=== PATIENT | female | born 1945 | race Caucasian/White ===

== ENCOUNTER → 2019-02-03 | Outpatient (CLI) | payer MEDICARE, OTHER ==
[~2019-02-03] MED LIST: IOPAMIDOL 370 MG/ML 200 ML INFUS..BTL INJ ONE; SODIUM CHLORIDE 0.9% 50ML 50 ML ONE
[2019-02-03 14:21] LABS: BLOOD UREA NITROGEN 12 mg/dL (7-26); BUN/CREATININE RATIO 13 (6-25); CREATININE, SERUM 0.89 mg/dL (0.57-1.11); EST GLOMERULAR FILTRATION RATE > 60 ML/MIN (60-)
--- NOTE | 2019-02-03 16:01 | Diagnostic Imaging Report ---
EXAM: CHEST 2 VIEWS, PA and lateral DATE: 02/03/2019 Time stamp on exam: 1:31 PM INDICATION: Malignant neoplasm of the kidney COMPARISON: None FINDINGS: LINES/TUBES: None LUNGS: No consolidations or edema. PLEURA: No effusions or pneumothorax. HEART AND MEDIASTINUM: Normal size and contour. BONES AND SOFT TISSUES: Degenerative changes of the thoracic spine are present. IMPRESSION: No acute thoracic abnormality. Signed by: Dr. Clovis Post DO on 02/03/2019 3:57 PM
--- NOTE | 2019-02-04 08:05 | Diagnostic Imaging Report ---
EXAM: CT Abdomen WITH contrast INDICATION: Renal malignancy. COMPARISON: None. TECHNIQUE: Abdomen and Pelvis was scanned utilizing a multidetector helical scanner from the lung base to the iliac crest before and after administration of IV contrast. Coronal and sagittal reformations were obtained. Renal mass protocol was performed. Scan was performed when during noncontrast, arterial, portal venous, and delayed phases. IV CONTRAST: 100 cc of Isovue 370. ORAL CONTRAST: Water RADIATION DOSE: Total DLP: 1491 mGy*cm COMPLICATIONS: None FINDINGS: LINES and TUBES: None. LOWER THORAX: Unremarkable HEPATOBILIARY: Diffuse hepatic steatosis. No focal hepatic lesions. No biliary ductal dilation. Status post cholecystectomy. SPLEEN: No splenomegaly. PANCREAS: No focal masses or ductal dilatation. ADRENALS: No adrenal nodules KIDNEYS/URETERS: Status post left nephrectomy. No evidence of mass in left nephrectomy bed. There is a 1.3 cm mildly enhancing cystic lesion (series 3, image 72; 2 HU on noncontrast, 25 HU on delayed images) within the anterior aspect of the right mid pole kidney. There is a punctate focus of hyperdensity on delayed images within the lesion on series 7, image 76, not seen on other sequences, and therefore likely enhancement. Punctate right mid pole hypodensity is too small to characterize, but likely represents a cyst. No evidence of hydronephrosis or stone. No evidence of right-sided urothelial lesion on delayed images. GI TRACT: No abnormal distention, wall thickening, or evidence of bowel obstruction. LYMPH NODES: No lymphadenopathy. There is mild mesenteric stranding on the left, for example on series 7, image 80. There is associated nonenlarged but mildly prominent mesenteric lymph nodes, measuring up to 7 mm short axis. PELVIS: Unremarkable. VESSELS: Unremarkable. PERITONEUM / RETROPERITONEUM: No free air or fluid. BONES AND SOFT TISSUES: No acute osseous abnormality. No suspicious lytic or blastic lesions. Degenerated discs lead to moderate central canal narrowing at L2-L3 and mild central canal narrowing at L1-L2. IMPRESSION: Mildly enhancing cystic lesion in the anterior aspect of the right mid pole kidney. Possible punctate focus of enhancement on delayed sequences. Differential includes cystic neoplasm. If prior comparison studies are available, that would be helpful. MRI is suggested for further evaluation. Status post left nephrectomy. No evidence of mass in the left nephrectomy bed or lymphadenopathy. Mild stranding within the left mesentery with mildly prominent but nonenlarged mesenteric lymph nodes. This could be related to inflammatory process such as mesenteric panniculitis. Comparison with prior studies would be helpful. Signed by: Dr. Delmy Jaime MD on 02/04/2019 8:02 AM
== END ==
LOC: CT 13:15
PROVIDERS: ATTEND Urology
DX: C64.9 Malignant neoplasm of unspecified kidney, except renal pelvis (principal); N28.1 Cyst of kidney, acquired
CPT/HCPCS: 36415; 71046; 74178; 82565; 84520; Q9967

== ENCOUNTER 2021-01-29 12:23 | Emergency (ER) | payer MEDICARE, OTHER ==
[~2021-01-29] VITALS: Ht 167.6 cm; Wt 76.3 kg
[2021-01-29] MEDS ORDERED: FARXIGA10 MG (12:45)
[2021-01-29] MEDS ORDERED: JANUMET 50-5001 EACH (12:45)
[2021-01-29] MEDS ORDERED: CEFDINIR300 MG PO (12:55)
== END 2021-01-29 13:02 | disposition home or self-care (01) ==
LOC: FSED 12:27
DX: R30.0 Dysuria (principal); N39.0 Urinary tract infection, site not specified; E11.65 Type 2 diabetes mellitus with hyperglycemia; R35.0 Frequency of micturition; Z85.528 Personal history of other malignant neoplasm of kidney
CPT/HCPCS: 81003; 87086; 87186; 99283